=== PATIENT | female | born 1960 | race Caucasian/White ===

== ENCOUNTER → 2017-01-21 | Outpatient (CLI) | payer BC ==
--- NOTE | 2017-01-21 14:19 | DI ---
US PELVIC-TRANSVAGINAL,01/21/2017 12:31 PM: Clinical History: Pelvic pain Previous Exam: None at this facility. Findings: Multiple transvaginal grayscale and color Doppler sonographic images are obtained through the pelvis demonstrating a fibroid uterus measuring 8.1 x 4.1 x 4.7 cm. There is a 2.3 x 2.2 x 2.2 cm fibroid within the anterior myometrium. The ovaries are not well seen d ue to overlying bowel gas. The endometrial stripe measures 7 mm. Impression: 1. Fibroid within the anterior myometrium measuring 2.3 x 2.2 x 2.7 cm. 2. Ovaries not well evaluated.
== END ==
LOC: US 12:26
PROVIDERS: ATTEND Family Medicine
DX: R10.2 Pelvic and perineal pain (principal); D25.9 Leiomyoma of uterus, unspecified
CPT/HCPCS: 76830

== ENCOUNTER → 2017-01-25 | Outpatient (CLI) | payer BC ==
--- NOTE | 2017-01-25 12:24 | DI ---
XR SHOULDER MIN 2VW,01/25/2017 9:32 AM: Clinical History: Right shoulder pain of unspecified chronicity. Previous Exam: None at this facility. Findings: 4 views of the right shoulder are obtained, and demonstrate anatomic alignment without fractures. The adjacent right lung and chest wall are unremarkable. Surrounding soft tissues are unremarkable. The right acromioclavicular joint is normal. Impression: Normal right shoulder.
--- NOTE | 2017-01-25 12:25 | DI ---
XR FINGERS MIN 2VW,01/25/2017 9:32 AM: Clinical History: Pain of the left middle finger. Previous Exam: None at this facility. Findings: 3 views of the left third digit are obtained, and demonstrate anatomic alignment without fractures. S urrounding soft tissues are unremarkable. Impression: No fracture.
--- NOTE | 2017-01-25 12:26 | DI ---
XR FOOT COMPLETE MIN 3VW,01/25/2017 9:46 AM: Clinical History: Left foot pain. Previous Exam: None at this facility. Findings: Multiple views of the left foot are obtained, and demonstrate anatomic alignment without fractures. D egenerative changes are noted of the left first metatarsophalangeal joint. Surrounding soft tissues are unremarkable. There is enthesopathy noted at the insertion of the Achilles tendon and the plantar fascia. Impression: Mild degenerative changes of the left foot otherwise unremarkable.
== END ==
LOC: ORTHO 09:50
PROVIDERS: ATTEND Orthopaedic Surgery
DX: M25.511 Pain in right shoulder (principal); M79.645 Pain in left finger(s); S63.613A Unspecified sprain of left middle finger, initial encounter; M79.672 Pain in left foot; M19.072 Primary osteoarthritis, left ankle and foot; M25.811 Other specified joint disorders, right shoulder
CPT/HCPCS: 73030; 73140; 73630

== ENCOUNTER 2017-02-08 07:13 | Day surgery (SDC) | payer BC ==
[~2017-02-08 07:13] MED LIST: LIDOCAINE W/ SODIUM BICARB 0.5 ML SYR ONE; Lactated Ringers 1,000 ML PRIMARY IV ONE
[2017-02-08 08:32] VITALS: RESP 12
--- NOTE | 2017-02-08 08:34 | GEN.OPNOTE ---
Colonoscopy Procedure Note Surgery Date: 02/08/17 Preoperative Diagnosis: Colon cancer screening. Postoperative Diagnosis: Colon cancer screening. Procedure: Complete colonoscopy. Surgeon: Piyush Garduno MD Anesthesia Provider: Tatiana Wolf CRNA Anesthesia Type: MAC Indications: Colon cancer screening for colon cancer prevention and/or early detection. Patient is 56 and has never had a colonoscopy. Findings: Prep : [Excellent] Cecum : [Normal] Ascending : [Normal] Transverse : [Normal] Sigmoid : [Normal] Rectum : [Normal] Digital Rectal Exam : [Normal] A lubricated flexible colonoscope was inserted and passed to the blind end of the cecum. The kasaan's foot, appendiceal orifice and ileocecal valve were clearly seen. Air was aspirated as the scope was withdrawn. Visualization was excellent. The entire colonoscopy was normal without polyp, tumor, neoplastic mass, infectious or inflammatory process identified. The scope was withdrawn completing the procedure. The patient tolerated the procedure well without complications. She was taken to outpatient surgery in stable condition. Follow-up will be in my office on an as-needed basis. It is recommended she undergo follow-up colonoscopy in 10 years time.
[2017-02-08 09:06] VITALS: TEMP 97.4
== END 2017-02-08 08:50 | disposition home or self-care (01) ==
LOC: SDSC 07:13
PROVIDERS: ATTEND Surgery
DX: Z12.11 Encounter for screening for malignant neoplasm of colon (principal)
CPT/HCPCS: 45378; J2704; J7120